=== PATIENT | male | born 1945 | race Caucasian/White ===

== ENCOUNTER → 2016-10-22 | Outpatient (CLI) | payer BC ==
[~2016-10-22] MED LIST: ATOR-54 PO; BACL10TA PO; BROM0.07 OPL; MELO7.5T5 PO; MODA1TAB6 PO; MULTTAB58 PO; NAPR500T3 PO; PRED1SUS3 OPL; PROT10TA PO
[2016-10-22 13:47] LABS: ALT/SGPT 30 U/L (12-78); BLOOD UREA NITROGEN 20 mg/dl (7-18); BUN/CREATININE RATIO 20.5 (10-20); CARBON DIOXIDE 31 mmol/L (21-32); CHLORIDE 105 mmol/L (98-107); CHOLESTEROL 198 mg/dl (0-200); CREATININE 0.98 mg/dl (0.60-1.40); GLUCOSE 88 mg/dl (70-99); POTASSIUM 4.2 mmol/L (3.5-5.1); SODIUM 142 mmol/L (136-145)
[2016-10-22 13:51] LABS: ALB/GLOB RATIO 1.3 (0.9-2); ALKALINE PHOSPHATASE 95 U/L (45-117); AST/SGOT 18 U/L (15-37); CHOLESTEROL/HDL RATIO 2.8; HDL CHOLESTEROL 71 mg/dl; LDL CHOLESTEROL CALCULATED 113 mg/dl; TRIGLYCERIDES 70 mg/dl (0-150); VERY LOW DENSITY LIPOPROT CALC 14 mg/dl
== END | disposition home or self-care (01) ==
LOC: C.LABBC 10:48
PROVIDERS: ATTEND Urology
DX: R97.20 Elevated prostate specific antigen [PSA] (principal); Z00.00 Encounter for general adult medical examination without abnormal findings; E78.5 Hyperlipidemia, unspecified; R03.0 Elevated blood-pressure reading, without diagnosis of hypertension

== ENCOUNTER → 2017-05-18 | Outpatient (CLI) | payer BC ==
[2017-05-18 14:13] LABS: ALT/SGPT 32 U/L (12-78); AST/SGOT 22 U/L (15-37); BLOOD UREA NITROGEN 23 mg/dl (7-18); BUN/CREATININE RATIO 20.6 (10-20); CALCIUM 9.1 mg/dl (8.5-10.1); CARBON DIOXIDE 32 mmol/L (21-32); CHLORIDE 105 mmol/L (98-107); CHOLESTEROL 175 mg/dl (0-200); GLUCOSE 93 mg/dl (70-99); POTASSIUM 4.6 mmol/L (3.5-5.1); SODIUM 140 mmol/L (136-145); TRIGLYCERIDES 96 mg/dl (0-150); VERY LOW DENSITY LIPOPROT CALC 19 mg/dl
[2017-05-18 14:17] LABS: ALKALINE PHOSPHATASE 135 U/L (45-117); CHOLESTEROL/HDL RATIO 2.7; HDL CHOLESTEROL 66 mg/dl; LDL CHOLESTEROL CALCULATED 90 mg/dl
== END | disposition home or self-care (01) ==
LOC: C.LABBC 10:25
PROVIDERS: ATTEND Family Medicine
DX: E78.5 Hyperlipidemia, unspecified (principal); R97.20 Elevated prostate specific antigen [PSA]; R39.198 Other difficulties with micturition

== ENCOUNTER → 2017-05-29 | Outpatient (CLI) | payer BC ==
[2017-05-29 13:27] LABS: BASO % 0.6 %; BASO ABS # 0.05 K/uL (0-0.2); COMPLETE YES; EOS % 4.2 %; HEMATOCRIT 42.8 % (42-52); IG% 0.2 %; LYMPH % 16.8 %; LYMPH ABS # 1.39 K/uL (1.2-3.4); MEAN CELL VOLUME 92.6 fL (80-100); MEAN CORPUSCULAR HEMOGLOBIN 31.4 pg (25-34); MEAN CORPUSCULAR HGB CONC 33.9 g/dl (32-36); MEAN PLATELET VOLUME 10.4 fL (7.4-10.4); MONO % 11.5 %; NEUT % 66.7 %; PLATELET COUNT 235 K/uL (130-400); RED BLOOD COUNT 4.62 M/uL (4.7-6.1); WHITE BLOOD COUNT 8.25 K/uL (4.8-10.8)
[2017-05-29 14:10] LABS: C-REACTIVE PROTEIN < 0.29 mg/dl (0-0.29)
[2017-06-03 02:34] LABS: ANTI-CENTROMERE AB <1.0 NEG AI (<1.0 NEG); ANTI-SS-A <1.0 NEG AI (<1.0 NEG); ANTI-SS-B <1.0 NEG AI (<1.0 NEG); DNA ds CRITHIDIA NEGATIVE (NEGATIVE); Sm Antibody <1.0 NEG AI (<1.0 NEG)
== END | disposition home or self-care (01) ==
LOC: C.LABBC 11:14
PROVIDERS: ATTEND Family Medicine
DX: M25.50 Pain in unspecified joint (principal); R74.8 Abnormal levels of other serum enzymes

== ENCOUNTER → 2017-06-04 | Outpatient (CLI) | payer BC ==
[~2017-06-04] MED LIST changes: -PRED1SUS3 OPL
--- NOTE | 2017-06-04 16:37 | DIAGNOSTIC IMAGING REPORT ---
L ELBOW MIN 3 VIEWS ROUTINE CLINICAL HISTORY: M79.641 Bilateral hand painM79.642 Left elbow [id number] pain COMPARISON: None. DISCUSSION: The bones and joint spaces appear intact. There is no evidence of fracture, dislocation or bony disease. Calcific medial epicondylitis. Soft tissue prominence posterior to the elbow. IMPRESSION: 1. Calcific medial epicondylitis. 2. No acute bony abnormality. 3. Soft tissue edema posterior to the elbow. The above report was generated using voice recognition software. It may contain grammatical, syntax or spelling errors. Electronically signed by: Leon Alexander M.D. 06/04/2017 4:36 PM Dictated Date/Time: 06/04/2017 4:35 PM
--- NOTE | 2017-06-04 16:48 | DIAGNOSTIC IMAGING REPORT ---
R HAND MIN 3 VIEWS ROUTINE, L HAND MIN 3 VIEWS ROUTINE CLINICAL HISTORY: M79.641 Bilateral hand painM79.642 Left elbow [id number] COMPARISON STUDY: None. FINDINGS: No fracture or dislocation within the right or left hand. Bone mineralization is intact. Moderate to severe osteoarthritis within the bilateral DIP joints most pronounced within the left index finger and right second through fourth fingers. Large marginal osteophytes within the bilateral index fingers with mild soft tissue swelling at these locations. Mild osteoarthritis within the right STT joint. There appears to be mild erosive arthritic change at the right index finger. IMPRESSION: Moderate to severe bilateral DIP osteoarthritis, right greater than left. There appears to be a component of mild erosive arthritic change at the DIP joint of the right index finger. Electronically signed by: Matt Younger M.D. 06/04/2017 4:47 PM Dictated Date/Time: 06/04/2017 4:44 PM
--- NOTE | 2017-06-04 16:48 | DIAGNOSTIC IMAGING REPORT ---
R HAND MIN 3 VIEWS ROUTINE, L HAND MIN 3 VIEWS ROUTINE CLINICAL HISTORY: M79.641 Bilateral hand painM79.642 Left elbow [id number] COMPARISON STUDY: None. FINDINGS: No fracture or dislocation within the right or left hand. Bone mineralization is intact. Moderate to severe osteoarthritis within the bilateral DIP joints most pronounced within the left index finger and right second through fourth fingers. Large marginal osteophytes within the bilateral index fingers with mild soft tissue swelling at these locations. Mild osteoarthritis within the right STT joint. There appears to be mild erosive arthritic change at the right index finger. IMPRESSION: Moderate to severe bilateral DIP osteoarthritis, right greater than left. There appears to be a component of mild erosive arthritic change at the DIP joint of the right index finger. Electronically signed by: Matt Younger M.D. 06/04/2017 4:47 PM Dictated Date/Time: 06/04/2017 4:44 PM
[2017-06-04 17:06] LABS: URIC ACID 4.3 mg/dl (2.6-7.2)
== END | disposition home or self-care (01) ==
LOC: C.RAD1850 15:56
PROVIDERS: ATTEND Internal Medicine Rheumatology
DX: M25.522 Pain in left elbow (principal); M79.641 Pain in right hand; M79.642 Pain in left hand

== ENCOUNTER → 2017-06-17 | Outpatient (CLI) | payer BC ==
[2017-06-17 10:29] LABS: SYNOVIAL FLUID APPEARANCE CLOUDY; SYNOVIAL FLUID COLOR STRAW
--- NOTE | 2017-06-18 21:03 | CODING QUERY NO DIAGNOSIS ---
TREATMENT RENDERED WITHOUT A DIAGNOSIS 43 To promote full compliance with coding requirements relating to patient care, physician participation is requested in all cases of optical designer uncertainty. Please assist us with providing a diagnosis/symptom for the test(s) below: A diagnosis/symptom was not documented on your Order. A valid diagnosis/symptom is required to bill all insurances. Please remember that we are unable to code a diagnosis of rule out, probable, possible, questionable, or suspected. DOS 06/17/17 Tests that require a diagnosis: * SYNOVIAL FLUID DIAGNOSIS: * AERO/ANAE CULTURE DIAGNOSIS: * SYNOVIAL CELLS DIAGNOSIS: * SYNOVIAL CRYSTALS DIAGNOSIS: Provider Signature: Date: Thank you Estefani Jarrell Health Information Management Once completed, please kindly fax back to [phone] For questions please call [phone]
[2017-06-19 15:36] LABS: LYME DNA PCR CSF OR SYNOVIAL Not detected (Not Detected); LYME DNA SOURCE Synovial Fluid
== END | disposition home or self-care (01) ==
LOC: C.LABSPEC 09:32
PROVIDERS: ATTEND Internal Medicine Rheumatology
DX: M70.20 Olecranon bursitis, unspecified elbow (principal); M25.522 Pain in left elbow

== ENCOUNTER → 2017-06-17 | Outpatient (CLI) | payer BC | END | disposition home or self-care (01) | LOC: C.LABBC 11:41 | PROVIDERS: ATTEND Urology | DX: N40.1 Benign prostatic hyperplasia with lower urinary tract symptoms (principal); R31.9 Hematuria, unspecified; R39.198 Other difficulties with micturition ==

== ENCOUNTER → 2017-07-06 | Outpatient (CLI) | payer BC ==
[~2017-07-06] MED LIST changes: -MODA1TAB6 PO; +MODA200T42 PO; +PANT40TA PO
--- NOTE | 2017-07-06 11:41 | DIAGNOSTIC IMAGING REPORT ---
KUB CLINICAL HISTORY: Nephrolithiasis. Elevated PSA. FINDINGS: An AP supine abdominal radiograph is compared to study dated 01/31/2011. There is a nonobstructed abdominal bowel gas pattern noting severe constipation. This degrades assessment of the renal shadows. There is no radiographic evidence of nephrolithiasis. Large phleboliths are seen in the pelvis. The skeletal structures are osteopenic. There is advanced lumbosacral spondylosis as well as scoliosis. IMPRESSION: 1. There is no radiographic evidence of nephrolithiasis. 2. Severe constipation. Electronically signed by: Nathen Chavarria M.D. 07/06/2017 11:40 AM Dictated Date/Time: 07/06/2017 11:39 AM
== END | disposition home or self-care (01) ==
LOC: C.RADBC 10:32
PROVIDERS: ATTEND Urology
DX: N20.0 Calculus of kidney (principal); R97.20 Elevated prostate specific antigen [PSA]

== ENCOUNTER 2017-07-13 14:14 | Observation (INO) | payer BC ==
[~2017-07-13] VITALS: Ht 170.2 cm; Wt 60.3 kg
[~2017-07-13 14:14] MED LIST changes: -PANT40TA PO
[2017-07-13] MEDS ORDERED: NITROGLYCERIN OINT 2% 1GM PACKET EXT ONE (14:30)
[2017-07-13] MEDS ORDERED: PROT10TA PO (14:38)
[2017-07-13 14:40] LABS: BASO % 0.3 %; BASO ABS # 0.02 K/uL (0-0.2); COMPLETE YES; EOS % 1.7 %; HEMATOCRIT 41.9 % (42-52); IG% 0.2 %; LYMPH % 16.1 %; LYMPH ABS # 0.94 K/uL (1.2-3.4); MEAN CELL VOLUME 93.7 fL (80-100); MEAN CORPUSCULAR HEMOGLOBIN 30.6 pg (25-34); MEAN CORPUSCULAR HGB CONC 32.7 g/dl (32-36); MEAN PLATELET VOLUME 9.6 fL (7.4-10.4); NEUT % 74.7 %; PLATELET COUNT 166 K/uL (130-400); RED BLOOD COUNT 4.47 M/uL (4.7-6.1); WHITE BLOOD COUNT 5.83 K/uL (4.8-10.8)
[2017-07-13 14:55] LABS: PROTHROMBIN TIME (PATIENT) 10.8 SECONDS (9.0-12.0)
[2017-07-13 14:58] LABS: BUN/CREATININE RATIO 21.2 (10-20); CALCIUM 9.1 mg/dl (8.5-10.1); CREATININE 0.99 mg/dl (0.60-1.40); POTASSIUM 3.9 mmol/L (3.5-5.1)
--- NOTE | 2017-07-13 15:18 | DIAGNOSTIC IMAGING REPORT ---
CHEST ONE VIEW PORTABLE HISTORY: 72 years-old Male cp acute atypical chest pain with shortness of breath COMPARISON: Chest radiograph 02/01/2013 TECHNIQUE: Portable upright AP view of the chest FINDINGS: Cardiomediastinal and hilar silhouettes are within normal limits. Atherosclerosis of the aorta. There is no pneumothorax or pleural effusion. Linear subsegmental right basilar opacities are noted suggesting atelectasis. Lungs appear hyperinflated with increased lucency suggesting emphysema. No overt pulmonary edema. Bones of the chest are grossly intact. IMPRESSION: Linear subsegmental right basilar opacities suggest atelectasis. No acute cardiopulmonary process identified. The above report was generated using voice recognition software. It may contain grammatical, syntax or spelling errors. Electronically signed by: Polo Phillip M.D. 07/13/2017 3:17 PM Dictated Date/Time: 07/13/2017 3:15 PM
--- NOTE | 2017-07-13 15:42 | EMERGENCY ROOM VISIT NOTE ---
History Report prepared by Amador: Olivier Bond Under the Supervision of: Dr. Kmear Dotson M.D. First contact with patient: 14:16 Stated Complaint: CHEST PAIN/SOB History of Present Illness The patient is a 72 year old male who presents to the Emergency Room with complaints of pressure-like chest pain that began 1 hour ago. At this time, he was getting ready to walk his dog. When his pain began, he was mildly short of breath, but he is not anymore. He is currently lightheaded. He denies any fevers , cough, or nausea at this time. He denies any history of hypertension or diabetes. He has a past medical history of narcolepsy with cataplexy, spinal stenosis, and prostate problems. He states he has some mild chest tightness at this time. Source of History: patient Onset: 1 hour ago Position: chest Symptom Intensity: moderate Quality: pressure, other (tightness) Timing: constant Associated Symptoms: No fevers, No cough, No SOB, No nausea Note: He is lightheaded. Review of Systems See HPI for pertinent positives & negatives. A total of 10 systems reviewed and were otherwise negative. Past Medical & Surgical Medical Problems: (1) Benign hypertrophy of prostate (2) GERD (gastroesophageal reflux disease) (3) History of kidney stones (4) Hypercholesterolemia (5) Narcolepsy (6) Osteoarthritis Surgical Problems: (1) History of transurethral resection of prostate Family History Omitted secondary to the patient's age. Social History Smoking Status: Former Smoker Smokeless Tobacco Use: No Drug Use: none Marital Status: Housing Status: lives with significant other Occupation Status: retired Current/Historical Medications Scheduled Atorvastatin (Lipitor), 20 MG PO QAM Baclofen (Lioresal), 10 MG PO DAILY Meloxicam (Mobic), 15 MG PO DAILY Modafinil (Provigil), 200 MG PO BID Multiple Vitamin (Multivitamin), 2 TAB PO QAM Protriptyline Hcl (Protriptyline Hcl), 10 MG PO DAILY Allergies Coded Allergies: Iodinated Contrast Media (Verified Allergy, Severe, ANAPHYLAXIS, 07/13/17) Physical Exam Vital Signs Date Time Temp Pulse Resp B/P (MAP) Pulse Ox O2 Delivery O2 Flow Rate FiO2 07/13/17 14:48 76 18 157/109 96 Room Air 07/13/17 14:23 96 Room Air 07/13/17 14:23 85 07/13/17 14:23 36.8 81 14 144/98 96 Room Air 07/13/17 14:23 96 Room Air Physical Exam Constitutional: Vital signs reviewed. Eyes: Pupils are equal round reactive to light. Conjunctiva are noninjected. ENT: Pharynx is clear without erythema or exudate. Mucous membranes are moist. Neck supple without meningeal signs. Respiratory: Clear to auscultation bilaterally. Breath sounds are equal bilaterally. Cardiovascular: Regular rate and rhythm. No rubs or gallops. GI: Soft, nondistended and nontender. Bowel sounds are present. Musculoskeletal: No peripheral edema. No lower extremity tenderness. Integumentary: No cyanosis. Neurological: The patient is awake and alert. No focal deficits. Psychiatric: Normal affect. Medical Decision & Procedures ER Provider Diagnostic Interpretation: Radiology results as stated below per my review and the radiologist's interpretation: CHEST ONE VIEW PORTABLE HISTORY: 72 years-old Male cp acute atypical chest pain with shortness of breath COMPARISON: Chest radiograph 02/01/2013 TECHNIQUE: Portable upright AP view of the chest FINDINGS: Cardiomediastinal and hilar silhouettes are within normal limits. Atherosclerosis of the aorta. There is no pneumothorax or pleural effusion. Linear subsegmental right basilar opacities are noted suggesting atelectasis. Lungs appear hyperinflated with increased lucency suggesting emphysema. No overt pulmonary edema. Bones of the chest are grossly intact. IMPRESSION: Linear subsegmental right basilar opacities suggest atelectasis. No acute cardiopulmonary process identified. The above report was generated using voice recognition software. It may contain grammatical, syntax or spelling errors. Electronically signed by: Polo Phillip M.D. 07/13/2017 3:17 PM Dictated Date/Time: 07/13/2017 3:15 PM Laboratory Results 07/13/17 14:25 Red Blood Count 4.47, Mean Corpuscular Volume 93.7, Mean Corpuscular Hemoglobin 30.6, Mean Corpuscular Hemoglobin Concent 32.7, Mean Platelet Volume 9.6, Neutrophils (%) (Auto) 74.7, Lymphocytes (%) (Auto) 16.1, Monocytes (%) (Auto) 7.0, Eosinophils (%) (Auto) 1.7, Basophils (%) (Auto) 0.3, Neutrophils # (Auto) 4.35, Lymphocytes # (Auto) 0.94, Monocytes # (Auto) 0.41, Eosinophils # (Auto) 0.10, Basophils # (Auto) 0.02 07/13/17 14:25 Test 07/13/17 14:25 07/13/17 14:32 White Blood Count 5.83 K/uL (4.8-10.8) Red Blood Count 4.47 M/uL (4.7-6.1) Hemoglobin 13.7 g/dL (14.0-18.0) Hematocrit 41.9 % (42-52) Mean Corpuscular Volume 93.7 fL (80-100) Mean Corpuscular Hemoglobin 30.6 pg (25-34) Mean Corpuscular Hemoglobin Concent 32.7 g/dl (32-36) Platelet Count 166 K/uL (130-400) Mean Platelet Volume 9.6 fL (7.4-10.4) Neutrophils (%) (Auto) 74.7 % Lymphocytes (%) (Auto) 16.1 % Monocytes (%) (Auto) 7.0 % Eosinophils (%) (Auto) 1.7 % Basophils (%) (Auto) 0.3 % Neutrophils # (Auto) 4.35 K/uL (1.4-6.5) Lymphocytes # (Auto) 0.94 K/uL (1.2-3.4) Monocytes # (Auto) 0.41 K/uL (0.11-0.59) Eosinophils # (Auto) 0.10 K/uL (0-0.5) Basophils # (Auto) 0.02 K/uL (0-0.2) RDW Standard Deviation 47.3 fL (36.4-46.3) RDW Coefficient of Variation 13.8 % (11.5-14.5) Immature Granulocyte % (Auto) 0.2 % Immature Granulocyte # (Auto) 0.01 K/uL (0.00-0.02) Prothrombin Time 10.8 SECONDS (9.0-12.0) Prothromb Time International Ratio 1.0 (0.9-1.1) Activated Partial Thromboplast Time 26.4 SECONDS (21.0-31.0) Partial Thromboplastin Ratio 1.0 Anion Gap 7.0 mmol/L (3-11) Est Creatinine Clear Calc Drug Dose 60.3 ml/min Estimated GFR () 86.6 Estimated GFR (Non- 74.7 BUN/Creatinine Ratio 21.2 (10-20) Calcium Level 9.1 mg/dl (8.5-10.1) Bedside Troponin I < 0.030 ng/ml (0-0.045) Laboratory results as reviewed by me. Medications Administered Medications (Trade) Dose Ordered Sig/Ke Route Start Time Stop Time Status Last Admin Dose Admin Nitroglycerin (Nitroglycerin 2% Oint) 0.5 inch NOW ONCE EXT 07/13/17 14:30 07/13/17 14:31 DC 07/13/17 14:50 0.5 INCH ECG Indication: chest pain Rate (beats per minute): 82 Rhythm: normal sinus Findings: no acute ischemic change, no ectopy ED Course 1416: The patient was evaluated in room C2. A complete history and physical exam was performed. 1430: Ordered Nitroglycerin 0.5 inch EXT 1516: I discussed his test results with him at this time. He is currently pain free. We discussed the need for an inpatient stay. 1522: [place] [facility] [place] the patient and his results. The patient will be further evaluated by him for further management. Medical Decision This is a 72-year-old male who presents with chest discomfort. Differential diagnosis includes unstable angina, MT, pleurisy, anxiety, GERD. I did perform a limited focused review of portions of the patient's old chart on the electronic medical record. The patient has had no recent pertinent visits to this hospital. I did evaluate the patient as noted above. Christiano bunch is presenting with chest discomfort which she describes as a tightness and pressure. He did have associated shortness of breath and lightheadedness with it as well. He has no known cardiac history. He states his only medical issues or spinal stenosis. IV access was established. The patient was placed on a continuous monitoring engineer. The patient did receive aspirin prior to arrival. He was given nitroglycerin paste here. I did order and personally review the patient's 12- lead EKG and chest x-ray as described above. His 12-lead EKG did not demonstrate any acute ischemia. I did order and review the patient's blood work as noted in the electronic medical record. Troponin is negative. I did reevaluate patient. His chest discomfort is completely resolved at this time. I did discuss the test results with the patient and his . I did recommend hospitalization for repeat cardiac enzymes and further testing. I did discuss the case with the hospitalist and outpatient case manager. Medication Reconcilliation Current Medication List: was personally reviewed by me Blood Pressure Screening Patient's blood pressure: Elevated blood pressure Blood pressure disposition: Referred to PCP Consults Time Called: 1520 Consulting Physician: Dr. Evy GHOTRA Returned Call: 1522 We discussed the patient's case. He will be evaluating the patient for further management and care. Impression Primary Impression: Acute chest pain Scribe Attestation The scribe's documentation has been prepared under my direct and personally reviewed by me in its entirety. I confirm that the note above accurately reflects all work, treatment, procedures, and medical decision making performed by me. Departure Information Dispostion Being Evaluated By Hospitalist Referrals No Doctor, Assigned (PCP)
[2017-07-13] MEDS ORDERED: POLYETHYLENE (MIRALAX) 17 GM PACK PO PRN (16:15)
[2017-07-13] MEDS ORDERED: MoRPHine SULFATE 2 MG/ML CARP IV PRN (16:15)
[2017-07-13] MEDS ORDERED: ONDANSETRON INJ 2 MG/ML 2 ML VIAL IV PRN (16:15)
[2017-07-13] MEDS ORDERED: NON-FORMULARY MEDICATION SCH (16:15)
[2017-07-13] MEDS ORDERED: ACETAMINOPHEN 325 MG TAB PO PRN (16:15)
--- NOTE | 2017-07-13 16:49 | History and Physical ---
History & Physical Date & Time of Service: Jul 13, 2017 at 16:28 Chief Complaint: Chest Pain/Sob Primary Care Physician: Shari Vazquez MD History of Present Illness Source: patient This is a 72 yo M with PMHx of Narcolepsy with cataplexy, lumbar spinal stenosis , BPH s/p TURP and multiple biopsies with elevated PSA, GERD, osteoarthritis, HLD who presents with acute onset of chest pain which occurred this morning while he was getting ready to walk the dog. He admits to a chest tightness which was generalized, acute in onset, without radiation or other presenting symptoms. He reports laying down and trying to relax, but then proceeded to call EMS as his was not home. He felt slightly confused and was having trouble describing the sensation to EMS. He denies acute shortness of breath, headache, lightheadedness, dizziness, changes in vision, focal or generalized weakness. Pt reports he has been ruminating over his multiple medical conditions and that he is due for bloodwork for elevation of PSA tomorrow or Thursday by Dr. Lorenz. He feels at this time this was in relation to an anxiety attack. He has many concerns regarding cost for observation status and being able to take his own medications from home. Here in the ER initial troponin is negative. EKG reviewed and is also without acute ischemic changes of signs of ST wave inversions. Other labs appear WNL. CXR reviewed and showing slight atelectasis. Past Medical/Surgical History Medical Problems: (1) Benign hypertrophy of prostate Status: Chronic (2) GERD (gastroesophageal reflux disease) Status: Chronic (3) History of kidney stones Status: Resolved (4) Hypercholesterolemia Status: Chronic (5) Narcolepsy Status: Chronic (6) Osteoarthritis Status: Chronic Surgical Problems: (1) History of transurethral resection of prostate Status: Resolved Social History Smoking Status: Former Smoker (age 16-early 20s) Smokeless Tobacco Use: No Alcohol Use: occasionally (1x per month) Drug Use: none Marital Status: Housing status: lives with family Occupational Status: retired Immunizations History of Influenza Vaccine: N/A History of Tetanus Vaccine?: Yes History of Pneumococcal: No History of Hepatitis B Vaccine: Unknown Multi-Drug Resistant Organisms History of MDRO: No Allergies Coded Allergies: Iodinated Diagnostic Agents (Verified Allergy, Severe, Anaphylaxis, ) Home Medications Scheduled Atorvastatin (Lipitor), 20 MG PO QAM Baclofen (Lioresal), 10 MG PO DAILY Meloxicam (Mobic), 15 MG PO DAILY Modafinil (Provigil), 200 MG PO BID Multiple Vitamin (Multivitamin), 2 TAB PO QAM Pantoprazole (Protonix), 40 MG PO DAILY Protriptyline Hcl (Protriptyline Hcl), 10 MG PO DAILY Review of Systems Constitutional: No fever, No chills, No sweats Eyes: No worsening of vision, No redness ENT: No nasal symptoms, No tinnitus, No trouble swallowing Respiratory: No cough, No sputum, No wheezing, No shortness of breath, No dyspnea on exertion, No dyspnea at rest Cardiovascular: + chest pain (see hpi), No edema, No palpitations Abdomen: No pain, No nausea, No vomiting, No diarrhea, No constipation Musculoskeletal: No joint pain, No swelling Genitourinary - Male: No hematuria, No dysuria, No urinary hesitancy, No urinary retention Neurologic: No weakness, No numbness/tingling Psychiatric: + anxiety Endocrine: No fatigue Integumentary: No rash, No itch Physical Exam Vital Signs Date Time Temp Pulse Resp B/P (MAP) Pulse Ox O2 Delivery O2 Flow Rate FiO2 07/13/17 16:26 85 16 155/88 99 Room Air 07/13/17 14:48 76 18 157/109 96 Room Air 07/13/17 14:23 96 Room Air 07/13/17 14:23 85 07/13/17 14:23 36.8 81 14 144/98 96 Room Air 07/13/17 14:23 96 Room Air General Appearance: WD/WN, no apparent distress Head: normocephalic, atraumatic Eyes: PERRL, EOMI ENT: hearing grossly normal, pharynx normal Neck: supple, no JVD Respiratory/Chest: chest non-tender, lungs clear, no respiratory distress, no accessory muscle use Cardiovascular: regular rate, rhythm, no JVD, no murmur, normal peripheral pulses Abdomen/GI: normal bowel sounds, non tender, soft Back: normal inspection Extremities/Musculoskelatal: normal inspection, no calf tenderness, no pedal edema Neurologic/Psych: alert, oriented x 3, + pertinent finding (anxious, movements are jittery) Skin: normal color, warm/dry Diagnostics Laboratory Results Results Past 24 Hours Test 07/13/17 14:25 07/13/17 14:32 Range/Units White Blood Count 5.83 4.8-10.8 K/uL Red Blood Count 4.47 4.7-6.1 M/uL Hemoglobin 13.7 14.0-18.0 g/dL Hematocrit 41.9 42-52 % Mean Corpuscular Volume 93.7 80-100 fL Mean Corpuscular Hemoglobin 30.6 25-34 pg Mean Corpuscular Hemoglobin Concent 32.7 32-36 g/dl Platelet Count 166 130-400 K/uL Mean Platelet Volume 9.6 7.4-10.4 fL Neutrophils (%) (Auto) 74.7 % Lymphocytes (%) (Auto) 16.1 % Monocytes (%) (Auto) 7.0 % Eosinophils (%) (Auto) 1.7 % Basophils (%) (Auto) 0.3 % Neutrophils # (Auto) 4.35 1.4-6.5 K/uL Lymphocytes # (Auto) 0.94 1.2-3.4 K/uL Monocytes # (Auto) 0.41 0.11-0.59 K/uL Eosinophils # (Auto) 0.10 0-0.5 K/uL Basophils # (Auto) 0.02 0-0.2 K/uL RDW Standard Deviation 47.3 36.4-46.3 fL RDW Coefficient of Variation 13.8 11.5-14.5 % Immature Granulocyte % (Auto) 0.2 % Immature Granulocyte # (Auto) 0.01 0.00-0.02 K/uL Prothrombin Time 10.8 9.0-12.0 SECONDS Prothromb Time International Ratio 1.0 0.9-1.1 Activated Partial Thromboplast Time 26.4 21.0-31.0 SECONDS Partial Thromboplastin Ratio 1.0 Sodium Level 139 136-145 mmol/L Potassium Level 3.9 3.5-5.1 mmol/L Chloride Level 104 98-107 mmol/L Carbon Dioxide Level 28 21-32 mmol/L Anion Gap 7.0 3-11 mmol/L Blood Urea Nitrogen 21 7-18 mg/dl Creatinine 0.99 0.60-1.40 mg/dl Est Creatinine Clear Calc Drug Dose 60.3 ml/min Estimated GFR () 86.6 Estimated GFR (Non- 74.7 BUN/Creatinine Ratio 21.2 10-20 Random Glucose 107 70-99 mg/dl Calcium Level 9.1 8.5-10.1 mg/dl Bedside Troponin I < 0.030 0-0.045 ng/ml Diagnostic Radiology CHEST ONE VIEW PORTABLE HISTORY: 72 years-old Male cp acute atypical chest pain with shortness of breath COMPARISON: Chest radiograph 02/01/2013 TECHNIQUE: Portable upright AP view of the chest FINDINGS: Cardiomediastinal and hilar silhouettes are within normal limits. Atherosclerosis of the aorta. There is no pneumothorax or pleural effusion. Linear subsegmental right basilar opacities are noted suggesting atelectasis. Lungs appear hyperinflated with increased lucency suggesting emphysema. No overt pulmonary edema. Bones of the chest are grossly intact. IMPRESSION: Linear subsegmental right basilar opacities suggest atelectasis. No acute cardiopulmonary process identified. The above report was generated using voice recognition software. It may contain grammatical, syntax or spelling errors. Electronically signed by: Polo Phillip M.D. EKG Normal sinus rhythm Possible Left atrial enlargement Septal infarct (cited on or before 01-FEB-2013) Abnormal ECG No significant change was found Vent. rate 82 BPM VT interval 140 ms QRS duration 82 ms QT/QTc 356/415 ms P-R-T axes 80 47 59 Impression Assessment and Plan This is a 72 yo M with PMHx of Narcolepsy with cataplexy, lumbar spinal stenosis , BPH s/p TURP and multiple biopsies with elevated PSA, GERD, osteoarthritis, HLD who presents with acute onset of chest pain which occurred this morning Chest Pain - Admit to tele for observation for rule out - Trend cardiac biomarkers, initial set was negative - EKG reviewed as above - Check 2 D echo - IF negative enzymes can consider a stress test tomorrow morning. - PT/OT consulted - pt active physically with walking the dog twice daily, was swimming laps in pool over the summer, and active with yard work Anxiety - Certainly could have played a role in chest pain above- Pain is not reproducible on exam, and he also feels this was largely anxiety related from thinking about medical comorbidities and has not ever experienced cardiac complaints in the past. Pt would benefit from teaching coping mechanisms for anxiety prior to discharge. Narcolepsy - Continue baclofen 10 mg daily, modafinil 200 mg BID, protriptyline 10 mg daily - Follows with Dr. Reyes as an outpatient BPH s/p TURP in 2013 - PSA =10, up from 7.418 a few months ago. Pt reports he is scheduled for 4K bloodwork per Dr. Lorenz. Pt has paperwork he is planning on having his bring in tomorrow. If possible could have bloodwork completed while already at the hospital - Currently without urinary symptoms Lumbar Stenosis - Continue meloxicam 15 mg QAM for pain GERD - Possible that chest pain may have been exacerbated to GERD. Pt reports he takes over the counter medications for this at home. DVT ppx: Teds, scds, lovenox CODE STATUS: FULL CODE Disposition: From home, admit on observation. Level of Care Telemetry Resuscitation Status FULL RESUSCITATION VTE Prophylaxis VTE Risk Assessment Done? Y/N: Yes Risk Level: Low Given or contraindicated: Enoxaparin (Lovenox)SQ, T.E.D. Stockings, SCD's Note I agree with above note. I examined patient and discussed analysis and plan with patient and APC. I answered all of the patients questions. My exam did not differ from the one presented by the APC.
[2017-07-13 18:15] VITALS: BP 161/89; PULSE 78; TEMP 36.7; O2SAT 97
[2017-07-13] MEDS: NITROGLYCERIN OINT 2% 1GM PACKET EXT SCH (20:45)
[2017-07-13] MEDS ORDERED: ENOXAPARIN 40 MG/0.4 ML SYR SC SCH (21:00)
[2017-07-13 21:06] VITALS: BP 149/80; PULSE 80; TEMP 36.7; O2SAT 94
[2017-07-13] MEDS ORDERED: IV FLUIDS COMPLETED PRN (21:45)
[2017-07-13 22:09] VITALS: BP 161/89; PULSE 78; TEMP 36.7; O2SAT 97; Ht 170.2 cm; Wt 60.3 kg
[2017-07-14] VITALS (8 sets, daily range): BP systolic 139–157; BP diastolic 82–89; PULSE 79–86; TEMP 36.5–37.1; O2SAT 94–97
[2017-07-14 02:33] LABS: BASO % 0.5 %; BASO ABS # 0.03 K/uL (0-0.2); COMPLETE YES; EOS % 2.4 %; HEMATOCRIT 41.7 % (42-52); IG% 0.3 %; LYMPH % 19.5 %; LYMPH ABS # 1.29 K/uL (1.2-3.4); MEAN CELL VOLUME 93.7 fL (80-100); MEAN CORPUSCULAR HEMOGLOBIN 30.3 pg (25-34); MEAN CORPUSCULAR HGB CONC 32.4 g/dl (32-36); MEAN PLATELET VOLUME 9.6 fL (7.4-10.4); MONO % 8.5 %; NEUT % 68.8 %; PLATELET COUNT 178 K/uL (130-400); RED BLOOD COUNT 4.45 M/uL (4.7-6.1); WHITE BLOOD COUNT 6.61 K/uL (4.8-10.8)
[2017-07-14] MEDS: NITROGLYCERIN OINT 2% 1GM PACKET EXT SCH (02:37)
[2017-07-14 02:52] LABS: BLOOD UREA NITROGEN 16 mg/dl (7-18); BUN/CREATININE RATIO 15.4 (10-20); CALCIUM 8.9 mg/dl (8.5-10.1); CARBON DIOXIDE 30 mmol/L (21-32); CHLORIDE 106 mmol/L (98-107); CREATININE 1.03 mg/dl (0.60-1.40); GLUCOSE 95 mg/dl (70-99); POTASSIUM 4.4 mmol/L (3.5-5.1); SODIUM 141 mmol/L (136-145)
[2017-07-14 02:57] LABS: CHOLESTEROL 175 mg/dl (0-200); CHOLESTEROL/HDL RATIO 2.3; HDL CHOLESTEROL 76 mg/dl; LDL CHOLESTEROL CALCULATED 81 mg/dl; TRIGLYCERIDES 88 mg/dl (0-150); VERY LOW DENSITY LIPOPROT CALC 18 mg/dl
[2017-07-14 06:28] LABS: ESTIMATED AVERAGE GLUCOSE 111 mg/dl; HA1C FLAG Normal (Normal)
[2017-07-14] MEDS ORDERED: ASPIRIN 81 MG ECTAB PO SCH (09:00)
[2017-07-14] MEDS ORDERED: MODAFINIL 100 MG TAB PO SCH (09:00)
[2017-07-14] MEDS ORDERED: MULTIVITAMIN TAB PO SCH (09:00)
[2017-07-14] MEDS ORDERED: BACLOFEN 10 MG TAB PO SCH (09:00)
[2017-07-14] MEDS ORDERED: MELOXICAM 7.5 MG TAB PO SCH (09:00)
[2017-07-14] MEDS ORDERED: ATORVASTATIN 20 MG TAB PO SCH (09:00)
--- NOTE | 2017-07-14 09:51 | ECHOCARDIOGRAM REPORT ---
*NOTICE TO RECEIVING [employer] AGENCY This information is strictly Confidential and protected under [place] law. [place] law prohibits you from making any further disclosure of this information unless further disclosure is expressly permitted by the written consent of the person to whom it pertains or is authorized by law. A general authorization for the release of medical or other information is not sufficient for this purpose. Hospital accepts no responsibility if the information is made available to any other person, INCLUDING THE PATIENT. Interpretation Summary * Name: KAROL RHODES Study Date: 07/14/2017 06:20 AM BP: 142/89 mmHg * Patient Location: [facility]\S\N276\S\1 HR: 86 * : 1945 (M/d/yyyy) Gender: Male Height: 67 in * Age: 72 yrs Ethnicity: [place] Weight: 143 lb * Ordering Physician: Jemma Hall * Referring Physician: Self, Referred * Performed By: Meg Hernandez RDCS * * Reason For Study: Chest Pain * BSA: 1.8 m2 * -- Conclusions -- * 1. Normal LV size. Mild concentric LVH. * 2. Normal LV systolic function. LVEF 65-70%. No regional wall motion abnormalities. * 3. Normal RV size and function. * 4. Mild aortic regurgitation. * 5. Grade I diastolic dysfunction. * 6. Normal estimated CVP. Procedure Details * A complete two-dimensional transthoracic echocardiogram was performed (2D, M-mode, Doppler and color flow Doppler). Left Ventricle * The left ventricle is grossly normal size. * There is mild concentric left ventricular hypertrophy. * Ejection Fraction = 65-70%. * No regional wall motion abnormalities noted. Right Ventricle * The right ventricle is grossly normal size. * The right ventricular systolic function is normal as assessed by tricuspid annular plane systolic excursion (TAPSE) (normal >1.5 cm). Atria * The left atrial size is normal. * Right atrial size is normal. Mitral Valve * The mitral valve is grossly normal. * There is no mitral valve stenosis. * Significant mitral regurgitation is absent. Tricuspid Valve * The tricuspid valve is not well visualized, but is grossly normal. * Significant tricuspid regurgitation is absent. Aortic Valve * The aortic valve opens well. * The aortic valve is trileaflet. * No hemodynamically significant valvular aortic stenosis. * Mild aortic regurgitation. Pulmonic Valve * The pulmonary valve is inadequately visualized, but the Doppler data is adequate for interpretation. * Pulmonic stenosis is absent. * Trace pulmonic valvular regurgitation. Great Vessels * The aortic root and proximal ascending aorta are normal sized. Pericardium/Pleural * There is no pericardial effusion. Great Vessels * Normal inferior vena cava size and collapsability with sniff indicates a normal right atrial pressure of 3 mmHg Left Ventricular Diastolic Function * Grade I diastolic dysfunction, (abnormal relaxation pattern). MMode 2D Measurements and Calculations IVSd 1.1 cm IVSs 1.2 cm LVIDd 3.8 cm LVIDs 2.8 cm LVPWd 1.2 cm LVPWs 1.4 cm IVS/LVPW 0.95 FS 27.5 % EDV(Teich) 61.7 ml ESV(Teich) 28.3 ml EF(Teich) 54.1 % EDV(cubed) 54.6 ml ESV(cubed) 20.8 ml EF(cubed) 61.8 % % IVS thick 9.1 % % LVPW thick 19.2 % LV mass(C)d 138.9 grams LV mass(C)dI 79.2 grams/m\S\2 LV mass(C)s 108.8 grams LV mass(C)sI 62.0 grams/m\S\2 SV(Teich) 33.4 ml SI(Teich) 19.0 ml/m\S\2 SV(cubed) 33.8 ml SI(cubed) 19.3 ml/m\S\2 Ao root diam 3.4 cm Ao root area 8.9 cm\S\2 ACS 2.0 cm LA dimension 2.5 cm asc Aorta Diam 2.9 cm LA/Ao 0.74 LVAd ap4 21.8 cm\S\2 LVLd ap4 7.4 cm EDV(MOD-sp4) 55.9 ml EDV(sp4-el) 54.5 ml LVAs ap4 12.9 cm\S\2 LVLs ap4 6.5 cm ESV(MOD-sp4) 25.5 ml ESV(sp4-el) 21.7 ml EF(MOD-sp4) 54.4 % EF(sp4-el) 60.2 % LVAd ap2 23.3 cm\S\2 LVLd ap2 7.8 cm EDV(MOD-sp2) 60.9 ml EDV(sp2-el) 59.0 ml LVAs ap2 13.0 cm\S\2 LVLs ap2 6.5 cm ESV(MOD-sp2) 24.6 ml ESV(sp2-el) 22.0 ml EF(MOD-sp2) 59.6 % EF(sp2-el) 62.8 % LVLd %diff 5.4 % EDV(MOD-bp) 59.0 ml LVLs %diff -0.21 % ESV(MOD-bp) 25.1 ml EF(MOD-bp) 57.4 % SV(MOD-sp4) 30.4 ml SI(MOD-sp4) 17.3 ml/m\S\2 SV(MOD-sp2) 36.3 ml SI(MOD-sp2) 20.7 ml/m\S\2 SV(MOD-bp) 33.9 ml SI(MOD-bp) 19.3 ml/m\S\2 SV(sp4-el) 32.8 ml SI(sp4-el) 18.7 ml/m\S\2 SV(sp2-el) 37.0 ml SI(sp2-el) 21.1 ml/m\S\2 Doppler Measurements and Calculations MV E max farrukh 62.1 cm/sec MV A max farrukh 82.9 cm/sec MV E/A 0.75 Ao V2 max 107.2 cm/sec Ao max PG 4.6 mmHg Ao max PG (full) 1.2 mmHg AI max farrukh 411.3 cm/sec AI max PG 67.7 mmHg AI dec slope 276.6 cm/sec\S\2 AI P1/2t 435.5 msec LV V1 max PG 3.4 mmHg LV V1 max 92.6 cm/sec PA V2 max 108.6 cm/sec PA max PG 4.8 mmHg PI max farrukh 179.7 cm/sec PI max PG 12.9 mmHg PI dec slope 166.5 cm/sec\S\2 PI P1/2t 316.1 msec TR max farrukh 225.3 cm/sec
[2017-07-14] MEDS ORDERED: PERFLUTREN LIPID MICROSPHERE (DEFINITY) IV ONE (10:07)
--- NOTE | 2017-07-14 11:27 | EXERCISE STRESS ECHO ---
*NOTICE TO RECEIVING [employer] AGENCY This information is strictly Confidential and protected under [place] law. [place] law prohibits you from making any further disclosure of this information unless further disclosure is expressly permitted by the written consent of the person to whom it pertains or is authorized by law. A general authorization for the release of medical or other information is not sufficient for this purpose. Hospital accepts no responsibility if the information is made available to any other person, INCLUDING THE PATIENT. Interpretation Summary * Name: KAROL RHODES Study Date: 07/14/2017 09:04 AM BP: 124/55 mmHg * Patient Location: [facility]\S\N276\S\1 HR: 83 * : 1945 (M/d/yyyy) Gender: Male Height: 67 in * Age: 72 yrs Ethnicity: [place] Weight: 132 lb * Ordering Physician: Philip Terrell * Referring Physician: Self, Referred * Performed By: Meg Hernandez RDCS * * Reason For Study: Chest Pain * BSA: 1.7 m2 * -- Conclusions -- * 1. Negative exercise stress echo for ischemia at >100% MPHR. * 2. Negative exercise ECG for ischemia. * 3. Average functional capacity. Exercised 4:34 min, achieving 6.4 METS. * 4. Normal hemodynamic response to exercise. No chest pain. * 5. Normal resting LV function (see prior echo report from today for full details on resting function). Procedure Details * ECHOEX, CPT #18288 * A contrast injection of Definity was performed to improve assessment of LV function. * Contrast was injected into an intravenous site in the left arm. * One vial of Definity ultrasound contrast was diluted in normal saline to a total volume of 10 ml. A total of '5' ml of solution was administered during imaging. * Lot # [id number] of Definity utilized for procedure. * Expiration date 1Dec. * The attending nurse who injected the contrast agent was Agnes Lane RN. Left Ventricular Findings with Stress * This was essentially a normal study. Left Ventricle * The left ventricle is grossly normal size. * There is mild concentric left ventricular hypertrophy. * Ejection Fraction = 65-70%. Right Ventricle * The right ventricle is not well visualized. Atria * The left atrium is not well visualized. * Right atrium not well visualized. Mitral Valve * The mitral valve is not well visualized. Aortic Valve * The aortic valve is not well visualized. Pericardium * There is no pericardial effusion. Stress Parameters * Normal baseline electrocardiogram. * Stress ECG: No ST changes. No arrhythmias. * No arrhythmia were noted with stress. * Rest heart rate was '83' BPM. * Rest blood pressure was '124/55' * Maximum heart rate achieved was 155 bpm. * Maximum heart rate was 106 % of maximum age-predicted heart rate. * Maximum blood pressure was '158/70' * Total exercise time was '04:34' * Maximum exercise MET level achieved was '6.40' METS * Maximum treadmill speed was '2.50' miles per hour. * Maximum treadmill elevation was '12.00'% grade. Left Ventricular Findings with Stress * The study was technically good with many images being of high quality.
[2017-07-14] MEDS ORDERED: PANT40TA PO (12:36)
--- NOTE | 2017-07-14 12:52 | Discharge Instructions ---
Discharge Instructions Date of Service Jul 14, 2017. Admission Reason for Admission: Acute Chest Pain Discharge Discharge Diagnosis / Problem: Acute chest pain, likely secondary to GERD/ anxiety Discharge Goals Goal(s): Decrease discomfort, Improve function, Improve disease control, Learn about illness, Diagnostic testing, Therapeutic intervention, Prevent Disease Progression Activity Recommendations Activity Limitations: resume your previous activity . Instructions / Follow-Up Instructions / Follow-Up You were admitted to [facility] due to acute chest pain. An acute cardiac event was ruled out throughout cardiac monitoring, cardiac enzymes, and stress echocardiogram. You symptoms have resolved and you are stable for discharge. We discussed the possiblity that your symptoms you experienced could have been related to: GERD (acid reflux): Take Protonix 40 mg daily Anxiety: You have admitted to a lot of stressors lately. We discussed treatment options, and you wish to follow-up with your PCP first. FOLLOW-UPS: Please follow-up with your PCP within 5-7 days Please follow-up/keep all of your subspecialty appointments Home Care: * If you are having chest pain, call 911 for an ambulance. Do NOT drive yourself to the hospital. * Ask your family members to learn CPR. * Learn to take your own blood pressure and pulse. Keep a record of your results. Ask your doctor when you should seek emergency medical attention. He or she will tell you which blood pressure reading is dangerous. Lifestyle Changes: * Maintain a healthy weight. Get help to lose any extra pounds. * Cut back on salt. * Limit canned, dried, packaged, and fast foods. * Don't add salt to your food. * Season foods with herbs instead of salt when you cook. * Break the smoking habit. Enroll in a stop-smoking program to improve your chances of success. * Limit fatty foods. * Ask your doctor about having your lipid levels checked regularly. * Build up your activity according to your doctor's recommendation. * Ask your doctor when it's okay to resume sexual activity. * Tell your doctor about any erectile dysfunction (ED) medication you are taking. Some ED medications are not safe if you take certain heart medications. * Try to manage stress. Follow Up: It is important for you to keep your follow up appointments with your medical provider. Current Hospital Diet Patient's current hospital diet: AHA Diet (Heart Healthy) Discharge Diet Recommended Diet: AHA Diet (Heart Healthy) Pending Studies Studies pending at discharge: no Laboratory Results Hemoglobin A1c Test 07/14/17 02:13 Range/Units Estimated Average Glucose 111 mg/dl Hemoglobin A1c 5.5 4.5-5.6 % Lipid Panel Test 07/14/17 02:13 Range/Units Triglycerides Level 88 0-150 mg/dl Cholesterol Level 175 0-200 mg/dl HDL Cholesterol 76 mg/dl Cholesterol/HDL Ratio 2.3 LDL Cholesterol, Calculated 81 mg/dl Medical Emergencies . Who to Call and When: Medical Emergencies: If at any time you feel your situation is an emergency, please call 911 immediately. Call 911 immediately or go to your nearest Emergency Room if you experience any of the following: Warning Signs and Symptoms of a Heart Attack * Chest pain that is not relieved by medication * Shortness of breath . Non-Emergent Contact Non-Emergency issues call your: Primary Care Provider . . "Provider Documentation" section prepared by Cata Cui. . AMI Core Measures Reason no ASA as I/P: Treatment provided - N/A Reason no ASA at D/C: Treatment not indicated Reason no statin as I/P: Treatment provided - N/A Reason no statin at D/C: Treatment provided - N/A VTE Core Measure Inpt VTE Proph given/why not?: Enoxaparin (Lovenox)SQ, T.E.D. Stockings, SCD's
--- NOTE | 2017-07-14 12:54 | Discharge Summary ---
Discharge Summary Date of Service Jul 14, 2017. Discharge Summary Admission Date: Jul 13, 2017 at 16:24 Discharge Date: Jul 14, 2017 Discharge Disposition: Home Principal Diagnosis: Acute chest pain Problems/Secondary Diagnoses: Anxiety Narcolepsy with cataplexy BPH s/p TURP in 2012 Lumbar Stenosis GERD OA HLD Immunizations: Have You Had Influenza Vaccine: N/A History of Tetanus Vaccine?: Yes History of Pneumococcal: No History of Hepatitis B Vaccine: Unknown Procedures: CHEST ONE VIEW PORTABLE HISTORY: 72 years-old Male cp acute atypical chest pain with shortness of breath COMPARISON: Chest radiograph 02/01/2013 TECHNIQUE: Portable upright AP view of the chest FINDINGS: Cardiomediastinal and hilar silhouettes are within normal limits. Atherosclerosis of the aorta. There is no pneumothorax or pleural effusion. Linear subsegmental right basilar opacities are noted suggesting atelectasis. Lungs appear hyperinflated with increased lucency suggesting emphysema. No overt pulmonary edema. Bones of the chest are grossly intact. IMPRESSION: Linear subsegmental right basilar opacities suggest atelectasis. No acute cardiopulmonary process identified. The above report was generated using voice recognition software. It may contain grammatical, syntax or spelling errors. Electronically signed by: Polo Phillip M.D. 07/13/2017 3:17 PM Dictated Date/Time: 07/13/2017 3:15 PM The status of this report is Signed. Draft = Not yet reviewed or approved by Radiologist. Signed = Reviewed and approved by Radiologist. Resting ECHO: Interpretation Summary * Name: KARLO RHODES Study Date: 07/14/2017 06:20 AM BP: 142/89 mmHg * [facility]\S\1 HR: 86 * : 1945 (M/d/yyyy) Gender: Male Height: 67 in * Age: 72 yrs Ethnicity: [place] Weight: 143 lb * Ordering Physician: Jemma Hall * Referring Physician: Self, Referred * Performed By: Meg Hernandez RDCS * * Reason For Study: Chest Pain * BSA: 1.8 m2 * -- Conclusions -- * 1. Normal LV size. Mild concentric LVH. * 2. Normal LV systolic function. LVEF 65-70%. No regional wall motion abnormalities. * 3. Normal RV size and function. * 4. Mild aortic regurgitation. * 5. Grade I diastolic dysfunction. * 6. Normal estimated CVP. Procedure Details * A complete two-dimensional transthoracic echocardiogram was performed (2D, M-mode, Doppler and color flow Doppler). Left Ventricle * The left ventricle is grossly normal size. * There is mild concentric left ventricular hypertrophy. * Ejection Fraction = 65-70%. * No regional wall motion abnormalities noted. Right Ventricle * The right ventricle is grossly normal size. * The right ventricular systolic function is normal as assessed by tricuspid annular plane systolic excursion (TAPSE) (normal >1.5 cm). Atria * The left atrial size is normal. * Right atrial size is normal. Mitral Valve * The mitral valve is grossly normal. * There is no mitral valve stenosis. * Significant mitral regurgitation is absent. Tricuspid Valve * The tricuspid valve is not well visualized, but is grossly normal. * Significant tricuspid regurgitation is absent. Aortic Valve * The aortic valve opens well. * The aortic valve is trileaflet. * No hemodynamically significant valvular aortic stenosis. * Mild aortic regurgitation. Pulmonic Valve * The pulmonary valve is inadequately visualized, but the Doppler data is adequate for interpretation. * Pulmonic stenosis is absent. * Trace pulmonic valvular regurgitation. Great Vessels * The aortic root and proximal ascending aorta are normal sized. Pericardium/Pleural * There is no pericardial effusion. Great Vessels * Normal inferior vena cava size and collapsability with sniff indicates a normal right atrial pressure of 3 mmHg Left Ventricular Diastolic Function * Grade I diastolic dysfunction, (abnormal relaxation pattern). Stress ECHO: Interpretation Summary * Name: KAROL RHODES Study Date: 07/14/2017 09:04 AM BP: 124/55 mmHg * Patient Location: [facility]\S\N276\S\1 HR: 83 * : 1945 (M/d/yyyy) Gender: Male Height: 67 in * Age: 72 yrs Ethnicity: [place] Weight: 132 lb * Ordering Physician: Philip Terrell * Referring Physician: Self, Referred * Performed By: Meg Hernandez RDCS * * Reason For Study: Chest Pain * BSA: 1.7 m2 * -- Conclusions -- * 1. Negative exercise stress echo for ischemia at >100% MPHR. * 2. Negative exercise ECG for ischemia. * 3. Average functional capacity. Exercised 4:34 min, achieving 6.4 METS. * 4. Normal hemodynamic response to exercise. No chest pain. * 5. Normal resting LV function (see prior echo report from today for full details on resting function). Procedure Details * ECHOEX, CPT #17026 * A contrast injection of Definity was performed to improve assessment of LV function. * Contrast was injected into an intravenous site in the left arm. * One vial of Definity ultrasound contrast was diluted in normal saline to a total volume of 10 ml. A total of '5' ml of solution was administered during imaging. * Lot # [id number] of Definity utilized for procedure. * Expiration date 1Dec. * The attending nurse who injected the contrast agent was Agnes Lane RN. Left Ventricular Findings with Stress * This was essentially a normal study. Left Ventricle * The left ventricle is grossly normal size. * There is mild concentric left ventricular hypertrophy. * Ejection Fraction = 65-70%. Right Ventricle * The right ventricle is not well visualized. Atria * The left atrium is not well visualized. * Right atrium not well visualized. Mitral Valve * The mitral valve is not well visualized. Aortic Valve * The aortic valve is not well visualized. Pericardium * There is no pericardial effusion. Stress Parameters * Normal baseline electrocardiogram. * Stress ECG: No ST changes. No arrhythmias. * No arrhythmia were noted with stress. * Rest heart rate was '83' BPM. * Rest blood pressure was '124/55' * Maximum heart rate achieved was 155 bpm. * Maximum heart rate was 106 % of maximum age-predicted heart rate. * Maximum blood pressure was '158/70' * Total exercise time was '04:34' * Maximum exercise MET level achieved was '6.40' METS * Maximum treadmill speed was '2.50' miles per hour. * Maximum treadmill elevation was '12.00'% grade. Left Ventricular Findings with Stress * The study was technically good with many images being of high quality. Medication Reconciliation New Medications: Pantoprazole (Protonix) 40 Mg Tab 40 MG PO DAILY, #30 TAB Continued Medications: Atorvastatin (Lipitor) 20 Mg Tab 20 MG PO QAM, TAB Baclofen (Lioresal) 10 Mg Tab 10 MG PO DAILY Meloxicam (Mobic) 7.5 Mg Tab 15 MG PO DAILY, TAB Modafinil (Provigil) 200 Mg Tab 200 MG PO BID, TAB Multiple Vitamin (Multivitamin) 1 Tab Tab 2 TAB PO QAM Protriptyline Hcl (Protriptyline Hcl) 10 Mg Tab 10 MG PO DAILY Discharge Exam Review of Systems: Constitutional: No fever, No chills, No sweats, No weakness, No fatigue ENT: No hearing loss Respiratory: No cough, No shortness of breath, No hemoptysis Cardiovascular: No chest pain, No edema, No palpitations Abdomen: No pain, No nausea, No vomiting, No diarrhea, No constipation Musculoskeletal: No joint pain, No muscle pain, No swelling, No calf pain Genitourinary - Male: No hematuria, No dysuria Neurologic: No weakness, No numbness/tingling Psychiatric: + anxiety, No depression symptoms Endocrine: No fatigue Hematologic / Lymphatic: No abnormal bleeding/bruising Integumentary: No rash, No itch, No new/changing skin lesions Physical Exam: General Appearance: no apparent distress Eyes: normal inspection, PERRL ENT: hearing grossly normal Neck: supple Respiratory/Chest: lungs clear, no respiratory distress, no accessory muscle use Cardiovascular: regular rate, rhythm Abdomen / GI: normal bowel sounds, non tender, soft Extremities: no calf tenderness, no pedal edema Neurologic/Psychiatric: alert, oriented x 3, + pertinent finding (tearful) Skin: normal color, warm/dry, no rash Hospital Course Admission H&P: This is a 72 yo M with PMHx of Narcolepsy with cataplexy, lumbar spinal stenosis , BPH s/p TURP and multiple biopsies with elevated PSA, GERD, osteoarthritis, HLD who presents with acute onset of chest pain which occurred this morning while he was getting ready to walk the dog. He admits to a chest tightness which was generalized, acute in onset, without radiation or other presenting symptoms. He reports laying down and trying to relax, but then proceeded to call EMS as his was not home. He felt slightly confused and was having trouble describing the sensation to EMS. He denies acute shortness of breath, headache, lightheadedness, dizziness, changes in vision, focal or generalized weakness. Pt reports he has been ruminating over his multiple medical conditions and that he is due for bloodwork for elevation of PSA tomorrow or Thursday by Dr. Lorenz. He feels at this time this was in relation to an anxiety attack. He has many concerns regarding cost for observation status and being able to take his own medications from home. Here in the ER initial troponin is negative. EKG reviewed and is also without acute ischemic changes of signs of ST wave inversions. Other labs appear WNL. CXR reviewed and showing slight atelectasis. Physical Exam Vital Signs Date Time Temp Pulse Resp B/P (MAP) Pulse Ox O2 Delivery O2 Flow Rate FiO2 07/13/17 16:26 85 16 155/88 99 Room Air 07/13/17 14:48 76 18 157/109 96 Room Air 07/13/17 14:23 96 Room Air 07/13/17 14:23 85 07/13/17 14:23 36.8 81 14 144/98 96 Room Air 07/13/17 14:23 96 Room Air General Appearance: WD/WN, no apparent distress Head: normocephalic, atraumatic Eyes: PERRL, EOMI ENT: hearing grossly normal, pharynx normal Neck: supple, no JVD Respiratory/Chest: chest non-tender, lungs clear, no respiratory distress, no accessory muscle use Cardiovascular: regular rate, rhythm, no JVD, no murmur, normal peripheral pulses Abdomen/GI: normal bowel sounds, non tender, soft Back: normal inspection Extremities/Musculoskelatal: normal inspection, no calf tenderness, no pedal edema Neurologic/Psych: alert, oriented x 3, + pertinent finding (anxious, movements are jittery) Skin: normal color, warm/dry Hospital Course: This is a 72 yo M with PMHx of Narcolepsy with cataplexy, lumbar spinal stenosis , BPH s/p TURP and multiple biopsies with elevated PSA, GERD, osteoarthritis, HLD who presents with acute onset of chest pain which occurred this morning Chest Pain: - Admit to tele for cardiac monitoring- no acute events - Trend cardiac biomarkers- negative - EKG w/out ischemic changes - Stress ECHO- unremarkable - HgbA1c and lipid panel- reviewed - Continue Lipitor 20 mg daily Anxiety: - Certainly could have played a role in chest pain above- Pain is not reproducible on exam, and he also feels this was largely anxiety related from thinking about medical comorbidities and has not ever experienced cardiac complaints in the past. -- Discussed starting medication vs outpatient f/u w/ PCP first- prefers to f /u w/ PCP first - Continue Protriptyline as above Narcolepsy- follows w/ Dr. Reyes: - Continue baclofen 10 mg daily, modafinil 200 mg BID, protriptyline 10 mg daily BPH s/p TURP in 2013: Continue outpatient f/u w/ Dr. Lorenz Lumbar Stenosis: Continue Meloxicam 15 mg QAM for pain GERD, possible that chest pain may have been exacerbated to GERD: - Pt reports he takes over the counter medications for this at home- discharged on Protonix 40 mg daily and instructed PCP f/u DVT ppx: Lovenox SQ daily CODE STATUS: FULL CODE Disposition: Discharge to home Total Time Spent: Greater than 30 minutes This includes examination of the patient, discharge planning, medication reconciliation, and communication with other providers. Discharge Instructions Please refer to the electronic Patient Visit Report (Discharge Instructions) for additional information. Follow-Up Please follow-up with your PCP within 5-7 days Please follow-up/keep all of your subspecialty appointments Additional Copies To Shari Vazquez MD
== END 2017-07-14 14:19 | disposition home or self-care (01) ==
LOC: EDBD 14:14 → C.EDC 14:15 → C.MED 16:24 → ENRESERV 17:36
PROVIDERS: ADMIT Internal Medicine Sports Medicine; ATTEND Hospitalist
DX: R07.9 Chest pain, unspecified (principal); K21.9 Gastro-esophageal reflux disease without esophagitis; Z87.442 Personal history of urinary calculi; E78.00 Pure hypercholesterolemia, unspecified; G47.419 Narcolepsy without cataplexy; M19.90 Unspecified osteoarthritis, unspecified site; Z87.891 Personal history of nicotine dependence; F41.9 Anxiety disorder, unspecified; N40.0 Benign prostatic hyperplasia without lower urinary tract symptoms

== ENCOUNTER → 2017-07-24 | Outpatient (CLI) | payer BC ==
[~2017-07-24] MED LIST changes: -BROM0.07 OPL; -NAPR500T3 PO; +PANT40TA PO
--- NOTE | 2017-07-24 09:39 | DIAGNOSTIC IMAGING REPORT ---
(BARIUM SWALLOW) ESOPHAGUS CLINICAL HISTORY: 72 years-old Male presenting with DYSPHAGIA. TECHNIQUE: A standard air contrast barium esophagram is performed. Multiple spot images of the esophagus are acquired both upright and prone. COMPARISON: Plain radiograph of the chest from 07/13/2017. FINDINGS: The patient was able to ingest barium and the barium pill without difficulty. Normal mucosal pattern. No evidence of intrinsic or extrinsic mass lesion. No aspiration observed. Esophageal dysmotility evidenced by tertiary contractions. The gastroesophageal junction distended normally. Small hiatal hernia noted. No gastroesophageal reflux could be elicited despite provocative maneuvers. Fluoroscopy dosage (mGy): Not available. Fluoroscopy time: 0.9 minutes. Number of fluoroscopic spot images: 25. IMPRESSION: 1. Small hiatal hernia without demonstrable gastroesophageal reflux. 2. Esophageal dysmotility, likely presbyesophagus. Electronically signed by: Kody Partida M.D. 07/24/2017 9:38 AM Dictated Date/Time: 07/24/2017 9:36 AM
== END | disposition home or self-care (01) ==
LOC: C.RAD 09:01
PROVIDERS: ATTEND Family Medicine
DX: R13.10 Dysphagia, unspecified (principal)

== ENCOUNTER → 2017-09-10 | Outpatient (CLI) | payer BC ==
[2017-09-10 18:59] LABS: BLOOD UREA NITROGEN 22 mg/dl (7-18); CREATININE 1.17 mg/dl (0.60-1.40)
== END | disposition home or self-care (01) ==
LOC: C.LABBC 14:56
PROVIDERS: ATTEND Urology
DX: R97.20 Elevated prostate specific antigen [PSA] (principal)

== ENCOUNTER → 2017-09-17 | Outpatient (CLI) | payer BC ==
[~2017-09-17] MED LIST changes: +GADAVIST IV PRN
--- NOTE | 2017-09-17 11:43 | DIAGNOSTIC IMAGING REPORT ---
PROSTATE MRI COMBO CLINICAL HISTORY: 72 years-old Male presenting with . PSA 10 ng/mL. TECHNIQUE: Multisequence, multiplanar MR imaging of the prostate was performed before and after the administration of intravenous contrast. Additional postprocessing was performed on a separate [employer] workstation by the radiologist for 3-D volumetric segmentation of the prostate and contouring of region(s) of interest (VIPUL) for targeting. IV contrast: 6.3 cc. COMPARISON: None. FINDINGS: Prostate: The prostate measures 5.2 cm ([employer] prostate boundary segmentation volume 54 mL). Moderate changes of benign prostatic hyperplasia. Precontrast T1 weighted imaging demonstrates no evidence of intrinsic T1 hyperintensity to suggest hemorrhage. Seminal vesicles normal. No suspicious lesions identified within the peripheral or transitional zones. Bladder: Normal. Bowel: Visualized portion of the rectum normal. Peritoneum: No free fluid in the pelvis. Lymph nodes: No lymphadenopathy in the visualized portion of the pelvis. Vasculature: Iliac vessels patent. Abdominal wall: Small fat-containing right inguinal hernia. Osseous structures: Normal bone marrow signal intensity. IMPRESSION: 1. No suspicious lesions identified. 2. Benign prostatic hyperplasia. Electronically signed by: Matt Younger M.D. 09/17/2017 11:42 AM Dictated Date/Time: 09/17/2017 11:32 AM
== END | disposition home or self-care (01) ==
LOC: C.MRIBC 09:45
PROVIDERS: ATTEND Urology
DX: R97.20 Elevated prostate specific antigen [PSA] (principal); N40.0 Benign prostatic hyperplasia without lower urinary tract symptoms